=== PATIENT | male | born 1965 | race American Indian/Alaskan Native ===

== ENCOUNTER 2016-08-17 08:15 | Day surgery (SDC) | payer BC ==
[2016-08-17 08:50] VITALS: BMI 28.5
[2016-08-17] MEDS ORDERED: Simethicone 40 mg/0.6 ml Liquid (30 ml) ONE (10:25)
[2016-08-17] MEDS ORDERED: Propofol 10 mg/ml Inj (20 ML) ONE (10:27)
[2016-08-17] MEDS ORDERED: Lactated Ringer's 500 ML IV ONE (10:30)
[2016-08-17 10:37] VITALS: O2SAT 100
[2016-08-17 11:19] VITALS: TEMP 98.6
[2016-08-17 12:18] VITALS: BP 112/75; PULSE 61; RESP 13
== END 2016-08-17 12:17 | disposition home or self-care (01) ==
LOC: C.ENDO 08:15
PROVIDERS: ATTEND Internal Medicine Gastroenterology
DX: K92.1 Melena (principal); K57.30 Diverticulosis of large intestine without perforation or abscess without bleeding; K64.0 First degree hemorrhoids
CPT/HCPCS: 45378; J2704; J7120